=== PATIENT | female | born 1965 | race Caucasian/White ===

== ENCOUNTER 2024-04-13 15:28 | Outpatient (AMB) | payer OTHER, SELFPAY ==
--- NOTE | 2024-04-13 15:31 | MHC.PC.OV ---
Vital Signs 04/13/24 15:40 Height 5 ft 6 in Weight 199 lb BMI 32.1 BP 104/74 Blood Pressure Location Lt brachial Position Sitting Pulse 89 Pulse Source Pulse Oximeter Pulse Oximetry (%) 98 Oxygen Delivery Method Room Air Intake Visit Reasons: Est. Care Intake Note: New patient visit Dye Lab Technician Required: No Allergies No Known Allergies Allergy (Verified 04/13/24 15:31) Tobacco use date assessed: 04/13/24 Dental Screening Dental Screen Date: 04/13/24 Did you have a dental visit in the last 12 months?: Yes Did you have a dental problem in the last 6 months where you did not have access to dental care?: No Was dental information given to patient?: Patient has dentist HPI HPI Comments History of Present Illness Details 59 year old female with a past medical history of high cholesterol presenting to [facility]. Last PCP visit out of area 2 years ago Has right shoulder pain, bilateral hand pain, wrist pain. CMC pain. Family history of rheumatoid Insomnia: Has issues maintaining sleep. Lifelong. Has tried otc, trazodone ambien in the past. Wakes up after a few hours of sleep can't fall back asleep. Has taken ativan in the past with good effect. Overdue for tier over. Overdue mammo ROS see HPI PHYSICAL EXAM: GENERAL: Alert and oriented x 3. NAD EYES: EOMI. Anicteric. HENT: Moist mucous membranes. No scleral icterus. No cervical lymphadenopathy. LUNGS: Clear to auscultation bilaterally. CARDIOVASCULAR: Regular rate and rhythm. No murmur. No JVD. ABDOMEN: Soft, non-tender +bs EXTREMITIES: No edema. Non-tender. SKIN: No rashes or lesions. Warm. NEUROLOGIC: No focal neurological deficits. CN II-XII grossly intact PSYCHIATRIC: Cooperative. Appropriate mood and affect FOR[facility], [facility] Surgical History History of ankle surgery H/O section Family History Father Heart failure Social History Housing: House Alcohol intake: current Patient Tobacco Use Status: Former Tobacco user Cigarettes Per Day: 10 Years Smoked: 20 Packs per year/per ci.00 e-Cigarette/Vaping Use: Never Used Second Hand Smoke Exposure: No Use of substances other than those prescribed or required for medical reasons: No service: No Current occupational status: unemployed Cognitive needs: No Hearing needs: No Vision needs: Yes (reading glasses) Questionnaire PHQ-9 Over the last 2 weeks, how often have you been bothered by any of the following problems? 1. Little interest or pleasure in doing things: not at all 2. Feeling down, depressed, or hopeless: not at all 3. Trouble falling or staying asleep, or sleeping too much: several days 4. Feeling tired or having little energy: not at all 5. Poor appetite or overeating: not at all 6. Feeling bad about yourself - or that you are a failure or have let yourself or your family down: not at all 7. Trouble concentrating on things, such as reading the newspaper or watching television: not at all 8. Moving or speaking so slowly that other people could have noticed. Or the opposite - being so fidgety or restless that you have been moving around a lot more than usual: not at all 9. Thoughts that you would be better off or of hurting yourself in some way: not at all Total score: 1 Depression Screening Interpretation: Negative Depression Screening Done: Yes 67376 - PHQ-9 Billing: Yes Source: Developed by Drs. Wadlemar Chavarria, Merlyn Chen, Jack Garcia and colleagues, with an educational jose from [employer] Thrive Questionnaire Date Thrive assessed: 04/13/24 I am a: Patient What is your living situation today?: I have a steady place to live Within the past 12 months, did the food you bought not last and you didn't have the money to get more?: Never true Within the past 12 months, did you worry whether your food would run out before you got money to buy more?: Never true Do you have trouble paying for medicines?: No Do you have trouble getting transportation to medical appointments?: No Do you have trouble paying your heating and electricity bill?: No Do you have trouble taking care of your child, family member or friend?: No Do you have trouble with day-to-day activities such as bathing, preparing meals, shopping, managing finances, etc.?: No Are you currently unemployed and looking for a job?: Yes Are you interested in more education?: No Please select the resources that you would like help with: Job search/training Currently or been in a relationship where the following occur: No concerns reported THRIVE Score: 0 AUDIT C Alcohol Use Questionnaire (AUDIT-C) 1. How often do you have a drink containing alcohol?: Monthly or less 2. How many drinks containing alcohol do you have on a typical day when you are drinking?: 1 or 2 3. How often do you have six or more drinks on one occasion?: Never Total Score: 1 JENNYFER-7 AMB Questionnaire JENNYFER-7 Date JENNYFER - 7 assessed: 04/13/24 Feeling nervous, anxious, or on edge: 1 = Several days Not being able to stop or control worryin = Not at all Worrying too much about different things: 1 = Several days Trouble relaxin = Several days Being so restless that it is hard to sit still: 1 = Several days Becoming easily annoyed or irritable: 0 = Not at all Feeling afraid as if something awful might happen: 0 = Not at all Total JENNYFER-7 score (0-4 normal; 5-9 mild; 10-14 moderate; 15-21 severe): 4 Source: Developed by Drs. Waldemar Chavarria, Merlyn Chen, Jack Garcia and colleagues, with an educational jose from [employer] JENNYFER-7 Assessment Billing JENNYFER-7 Assessment Tool: JENNYFER-7 Assessment 72216 Physical exam (Primary Care) Vital Signs: Last Vital Signs Pulse 89 04/13/24 15:40 BP 104/74 04/13/24 15:40 Pulse Ox 98 04/13/24 15:40 Oxygen Delivery Method Room Air 04/13/24 15:40 BMI result Body Mass Index 32.1 Tobacco/Smoking Status: Tobacco use Status Tobacco use date assessed 04/13/24 04/13/24 15:43 Patient Tobacco Use Status Former Tobacco user 04/13/24 15:43 e-Cigarette/Vaping Use Never Used 04/13/24 15:43 PHQ-9: PHQ-9 Score PHQ-9: Total score 1 04/13/24 15:51 Depression Screening Interpretation: Negative Thrive Assessment: Date of Thrive Assessment Date Thrive assessed 04/13/24 04/13/24 15:43 Currently or been in a relationship where the following occur: No concerns reported Coding Level of Care Code New Pt Level 4 (89113) Diagnoses Encounter to establish care Z76.89 Bilateral wrist pain M25.531; M25.532 Additional Codes JENNYFER-7 Assessment Billing - JENNYFER-7 Assessment Tool: JENNYFER-7 Assessment 01254 ([id number]) PHQ-9 - 13145 - PHQ-9 Billing: Yes ([id number]) Assessment & Plan Assessment & Plan (1) Encounter to establish care: Code(s): Z76.89 - Persons encountering health services in other specified circumstances Category: Medical Plan: past medical, surgical, social and family history reviewed (2) Bilateral wrist pain: Code(s): M25.531 - Pain in right wrist; M25.532 - Pain in left wrist Category: Medical Plan: xrays ordered referral to rheumatology Trial meloxicam Orders: Orders Rheumatoid Factor 04/13/24 M25.511 - Pain in right shoulder, M25.531 - Pain in right wrist, M25.532 - Pain in left wrist, M79.641 - Pain in right hand, M79.642 - Pain in left hand XR hand LT min 3V 04/13/24 M25.511 - Pain in right shoulder, M25.531 - Pain in right wrist, M25.532 - Pain in left wrist, M79.641 - Pain in right hand, M79.642 - Pain in left hand XR hand RT min 3V 04/13/24 M25.511 - Pain in right shoulder, M25.531 - Pain in right wrist, M25.532 - Pain in left wrist, M79.641 - Pain in right hand, M79.642 - Pain in left hand MM screening mammo BI 04/13/24 Z12.31 - Encounter for screening mammogram for malignant neoplasm of breast Erythrocyte Sedimentation Rate 04/13/24 M25.511 - Pain in right shoulder, M25.531 - Pain in right wrist, M25.532 - Pain in left wrist, M79.641 - Pain in right hand, M79.642 - Pain in left hand Cyclic Citrullinated Peptide 04/13/24 M25.511 - Pain in right shoulder, M25.531 - Pain in right wrist, M25.532 - Pain in left wrist, M79.641 - Pain in right hand, M79.642 - Pain in left hand Lyme IgG/IgM w/reflex to WB 04/13/24 M25.511 - Pain in right shoulder, M25.531 - Pain in right wrist, M25.532 - Pain in left wrist, M79.641 - Pain in right hand, M79.642 - Pain in left hand Referrals Rheumatology Referral M25.511 - Pain in right shoulder, M25.531 - Pain in right wrist, M25.532 - Pain in left wrist, M79.641 - Pain in right hand, M79.642 - Pain in left hand PRIMARY CARE PHYSICIAN Referral Z01.419 - Encounter for gynecological examination (general) (routine) without abnormal findings Cologuard Test Z12.11 - Encounter for screening for malignant neoplasm of colon, Z12.12 - Encounter for screening for malignant neoplasm of rectum Dermatology Referral Z12.83 - Encounter for screening for malignant neoplasm of skin Medications: New temazepam 15 mg (2 x 7.5 mg) PO BEDTIME PRN 30 caps 2RF sleep meloxicam 15 mg PO DAILY 90 tabs 3RF
[2024-04-13 15:40] VITALS: BP 104/74; PULSE 89; O2SAT 98; BMI 32.1
== END 2024-04-13 16:08 | disposition home or self-care (01) ==
PROVIDERS: PCP Internal Medicine; Visit Provider Internal Medicine
DX: Z76.89 Persons encountering health services in other specified circumstances (principal); M25.531 Pain in right wrist; M25.532 Pain in left wrist

== ENCOUNTER → 2024-04-13 15:28 | Outpatient (BNVA) | payer OTHER, SELFPAY | PROVIDERS: PCP Internal Medicine; Visit Provider Internal Medicine | DX: M25.531 Pain in right wrist (principal); M25.532 Pain in left wrist; M25.511 Pain in right shoulder; M79.641 Pain in right hand; M79.642 Pain in left hand; Z76.89 Persons encountering health services in other specified circumstances | CPT/HCPCS: 96127; 99202 ==

== ENCOUNTER 2024-05-07 13:46 | Outpatient (REF) | payer OTHER, SELFPAY | END 2024-05-07 13:47 | disposition home or self-care (01) | LOC: HO.MAMMO 13:46 | PROVIDERS: PCP Internal Medicine; Visit Provider Internal Medicine | DX: Z12.31 Encounter for screening mammogram for malignant neoplasm of breast (principal) | CPT/HCPCS: 77063; 77067 ==

== ENCOUNTER 2024-05-07 14:39 | Outpatient (REF) | payer OTHER, SELFPAY ==
--- NOTE | ~2024-05-07 | XR_ITS ---
CLINICAL HISTORY: M79.641 - Pain in right hand Exam: AP, lateral, and oblique views of the left hand. Comparison: Right hand radiographs from same day. Findings: Moderate to severe degenerative change of the 1st carpometacarpal joint with [id number] degenerative change of the STT joint and 1st metacarpophalangeal joint. Minimal to mild scattered degenerative change along the interphalangeal joints. No acute fracture or erosion. No focal bony malalignment. Impression: Degenerative changes as above. This document has been electronically signed by: Ki Montoya MD on 05/08/2024 10:04:47
--- NOTE | ~2024-05-07 | XR_ITS ---
CLINICAL HISTORY: M79.641 - Pain in right hand Exam: AP, lateral, and oblique views of the right hand. Comparison: Left hand radiographs from same day. Findings: Moderate to severe degenerative change of the 1st carpometacarpal joint with moderate degenerative change of the STT joint and 1st metacarpophalangeal joint. No fracture or erosion. No dislocation. Minor scattered degenerative change along the remainder of the metacarpophalangeal joints and interphalangeal joints. Impression: Degenerative change of the thumb and radial aspect of the carpus as above. This document has been electronically signed by: Ki Montoya MD on 05/08/2024 10:05:52
== END 2024-05-07 14:40 | disposition home or self-care (01) ==
LOC: HO.XRAY 14:39
PROVIDERS: PCP Internal Medicine; Visit Provider Internal Medicine
DX: M79.641 Pain in right hand (principal); M79.642 Pain in left hand; M25.531 Pain in right wrist; M25.532 Pain in left wrist; M25.511 Pain in right shoulder
CPT/HCPCS: 73130

== ENCOUNTER → 2024-05-07 14:44 | Outpatient (BNV) | payer OTHER, SELFPAY | PROVIDERS: PCP Internal Medicine; Visit Provider Radiology Diagnostic Radiology | DX: M79.641 Pain in right hand (principal); M79.642 Pain in left hand | CPT/HCPCS: 73130 ==

== ENCOUNTER 2024-05-08 06:49 | Outpatient (REF) | payer OTHER, SELFPAY ==
[2024-05-08 08:28] LABS: Erythrocyte Sedimentation Rate 9 MM/HR (0-20)
[2024-05-08 08:37] LABS: Rheumatoid Factor < 13.0 IU/mL (<15.0)
[2024-05-09 10:19] LABS: Lyme Abs Screen <0.90 index
[2024-05-10 12:54] LABS: Cyclic Citrullinated Peptide <16 UNITS
== END 2024-05-08 06:50 | disposition home or self-care (01) ==
LOC: HO.LAB 06:49
PROVIDERS: PCP Internal Medicine; Visit Provider Internal Medicine
DX: M79.641 Pain in right hand (principal); M79.642 Pain in left hand; M25.531 Pain in right wrist; M25.532 Pain in left wrist; M25.511 Pain in right shoulder
CPT/HCPCS: 36415; 85652; 86200; 86431; 86617; 86618

== ENCOUNTER 2024-12-04 10:22 | Outpatient (AMB) | payer OTHER, SELFPAY ==
--- NOTE | 2024-12-04 10:40 | MHC.OFFVIS ---
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 Breast tenderness. No cramping. Assignment Agent: Assignment Agent Present (MYRON Herrera ) Accompanied by: Self / Same As Patient Allergies No Known Allergies Allergy (Verified 12/04/24 10:58) HPI Comments Details: Patient is here today for new patient consult with vaginal bleeding after a LMP over a year ago. She reports recent bilateral breast tenderness and thick yellow-greenish discharge. 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 She denies any urinary symptoms or pelvic pain. PFSH Medical History PMB (postmenopausal bleeding) Surgical History History of ankle surgery H/O section Family History Father Heart failure Social History Housing: House Alcohol intake: current Patient Tobacco Use Status: Former Tobacco user Cigarettes Per Day: 10 Years Smoked: 20 e-Cigarette/Vaping Use: Never Used Second Hand Smoke Exposure: No service: No Current occupational status: unemployed Cognitive needs: No Hearing needs: No Vision needs: Yes (reading glasses) Female Reproductive History Menstrual Age of Menarche: 14 control method: none Total pregnancies: 2 Full term: 2 History of abnormal pap smear: No Date of Mammogram: 05/07/24 Review of Systems Const All systems reviewed & are unremarkable except as noted in HPI and below Physical Exam Vital Signs: Last Vital Signs BP 104/70 12/04/24 11:01 BMI result Body Mass Index 31.3 Const General: cooperative, healthy appearing and no acute distress Orientation/consciousness: patient oriented x3 GI Inspection: Yes normal to inspection Palpation (GI): Soft to palpation and Other GI palpation findings present (Nontender) Rectal Exam - Female: visual inspection normal General: Yes bladder normal to palpation External Female Exam: normal appearance of the urethra Speculum Exam - Vagina: normal appearance of the vagina, normal palpation, normal vaginal discharge and vaginal bleeding Speculum Exam - Cervix: normal appearance of the cervix, normal palpation and Other cervical findings present (anterior position) Bimanual exam- vagina & uterus: normal bimanual exam, normal palpation, uterine size normal, bladder normal to palpation, normal palpation, uterine shape normal, non-tender and enlarged (RV) Bimanual Exam- Adnexa, other: normal adnexae OB/external & speculum: vaginal bleeding Neuro General: patient oriented x3 Assessment & Plan Assessment & Plan (1) PMB (postmenopausal bleeding): Code(s): N95.0 - Postmenopausal bleeding Category: Medical Plan Discuss workup for postmenopausal bleeding to include Pap smear, GC chlamydia, BV panel, pelvic ultrasound, an endometrial biopsy. Purpose of endometrial biopsy to rule out any abnormal findings including atypia, hyperplasia, precancer and cancer of the uterus lining. Preprocedure anticipatory guidance reviewed, advised to have something to eat and drink and take 3 Advil 1 hour before her biopsy appointment. The patient expressed understanding and agreement with the plan of care. All of her questions and concerns were addressed to the best of my ability. This note is constructed using voice recognition software. While every effort has been made to ensure accuracy, livestock auctioneer errors may have been included. Orders: Orders US pelvic and transvaginal Today N95.0 - Postmenopausal bleeding Pap Smear Today N95.0 - Postmenopausal bleeding, Z01.419 - Encounter for gynecological examination (general) (routine) without abnormal findings Bacterial Vaginosis Panel Today N95.0 - Postmenopausal bleeding CT NG by PCR Vag/Cerv Today N95.0 - Postmenopausal bleeding Coding Level of Care Code New Pt Level 3 (91522) Diagnoses PMB (postmenopausal bleeding) N95.0
[2024-12-04 11:01] VITALS: BP 104/70; BMI 31.3
--- OUTSIDE RECORDS SUMMARY | 2024-12-04 12:37 | XMS_ITS ---
Author Name [facility] Organization Unknown Encounters Encounter Type Encounter Reason Primary Diagnosis Location Date Ambulatory [facility], [facility]. ([facility]) 03/16/2024
== END 2024-12-04 15:13 | disposition home or self-care (01) ==
LOC: HO.HWS 10:22
PROVIDERS: PCP Internal Medicine; Visit Provider Advanced Practice Midwife
DX: N95.0 Postmenopausal bleeding (principal)
CPT/HCPCS: 99203

== ENCOUNTER 2024-12-04 10:22 | Outpatient (REF) | payer OTHER, SELFPAY ==
[2024-12-05 02:47] LABS: Bacterial Vaginosis PCR POSITIVE (Negative); Candida Group PCR NOT DETECTED (Not Detect); Candida glab krusei PCR NOT DETECTED (Not Detect); Trichomonas vaginalis PCR NOT DETECTED (Not Detect)
[2024-12-05 03:17] LABS: CT PCR NOT DETECTED (Not Detect.); NG PCR NOT DETECTED (Not Detect.)
== END 2024-12-04 10:23 | disposition home or self-care (01) ==
LOC: HO.LNP 10:22
PROVIDERS: PCP Internal Medicine; Visit Provider Advanced Practice Midwife
DX: Z01.419 Encounter for gynecological examination (general) (routine) without abnormal findings (principal); N95.0 Postmenopausal bleeding; Z20.2 Contact with and (suspected) exposure to infections with a predominantly sexual mode of transmission; Z11.51 Encounter for screening for human papillomavirus (HPV)
CPT/HCPCS: 81515; 87491; 87591; 87626; 88175; 99202

== ENCOUNTER 2024-12-24 10:45 | Outpatient (REF) | payer OTHER, SELFPAY ==
--- NOTE | ~2024-12-24 | US_ITS ---
CLINICAL HISTORY: postmenopausal bleeding US pelvis transabdominal and transvaginal with Doppler Comparison: None provided Findings: Transabdominal scanning performed for overall anatomy. Transvaginal scanning performed for additional detail. There are 4 masses in the uterus. The 1st mass measures 1.1 x 0.8 x 0.9 cm in the right uterus. The 2nd mass measures 0.8 x 0.7 x 0.8 cm in the right uterus. The 3rd mass measures 1.9 x 2.2 x 2.1 cm along the anterior uterus. The 4th mass is on the left and 1 x 0.9 x 1 cm. These likely represent fibroids. Uterus is 10.4 x 5.3 x 5.4 cm. the uterus is retroverted. Exam is limited due to uterus position. Endometrial thickness measures 0.3 cm. Right ovary is not seen. Left ovary is 2.1 x 0.8 x 1.1 cm Left adnexal Multilocular cystic lesion with slightly irregular inner wall and septations with no solid components. O-RADS category 4. Recommend gynecology referral and further evaluation with pelvic MRI. IMPRESSION: 1. Left adnexal Multilocular cystic lesion with slightly irregular inner wall and septations with no solid components. O-RADS category 4. Recommend gynecology referral and further evaluation with pelvic MRI. 2. There are 4 masses in the uterus. The 1st mass measures 1.1 x 0.8 x 0.9 cm in the right uterus. The 2nd mass measures 0.8 x 0.7 x 0.8 cm in the right uterus. The 3rd mass measures 1.9 x 2.2 x 2.1 cm along the anterior uterus. The 4th mass is on the left and 1 x 0.9 x 1 cm. These likely represent fibroids. 3. Endometrial thickness measures 0.3 cm. This document has been electronically signed by: Dami Sahu DO on 12/24/2024 12:34:40
== END 2024-12-24 10:46 | disposition home or self-care (01) ==
LOC: HO.US 10:45
PROVIDERS: PCP Internal Medicine; Visit Provider Advanced Practice Midwife
DX: N95.0 Postmenopausal bleeding (principal)
CPT/HCPCS: 76830; 76856

== ENCOUNTER → 2024-12-24 10:46 | Outpatient (BNV) | payer OTHER, SELFPAY | PROVIDERS: PCP Internal Medicine; Visit Provider Family Medicine | DX: N95.0 Postmenopausal bleeding (principal); D26.9 Other benign neoplasm of uterus, unspecified | CPT/HCPCS: 76830; 76856 ==

== ENCOUNTER 2025-01-01 13:44 | Outpatient (REF) | payer OTHER, SELFPAY | END 2025-01-01 13:45 | disposition home or self-care (01) | LOC: HO.LNP 13:44 | PROVIDERS: PCP Internal Medicine; Visit Provider Advanced Practice Midwife | DX: N83.292 Other ovarian cyst, left side (principal); N95.0 Postmenopausal bleeding | CPT/HCPCS: 58100; 88305 ==

== ENCOUNTER 2025-01-01 13:44 | Outpatient (AMB) | payer OTHER, SELFPAY ==
--- NOTE | 2025-01-01 14:12 | MHC.OFFVIS ---
Vital Signs 01/01/25 14:25 Height 5 ft 6 in BP 100/64 Intake Visit Reasons: emb/ultrasound follow up Front Desk Administrator: Front Desk Administrator Present (Sonia) Allergies No Known Allergies Allergy (Verified 01/01/25 14:12) HPI Comments Details: Patient is here today for an endometrial biopsy due to postmenopausal bleeding. Ultrasound reviewed and recommended an MRI due to complex ovarian cyst she is concerned as she has insurance changes w/ new insurance on 01/12/2025. [facility] Medical History (Updated 01/01/25 @ 14:29 by Yoly Rivas CNM) Fibroid Complex ovarian cyst PMB (postmenopausal bleeding) Surgical History History of ankle surgery H/O section Family History Father Heart failure Social History Housing: House Alcohol intake: current Patient Tobacco Use Status: Former Tobacco user Cigarettes Per Day: 10 Years Smoked: 20 e-Cigarette/Vaping Use: Never Used Second Hand Smoke Exposure: No service: No Current occupational status: unemployed Cognitive needs: No Hearing needs: No Vision needs: Yes (reading glasses) Female Reproductive History Menstrual Age of Menarche: 14 Review of Systems Const All systems reviewed & are unremarkable except as noted in HPI and below Physical Exam Vital Signs: Last Vital Signs BP 100/64 01/01/25 14:25 Const General: cooperative, healthy appearing and no acute distress Orientation/consciousness: patient oriented x3 GI Inspection: Yes normal to inspection Palpation (GI): Soft to palpation and Other GI palpation findings present (Nontender) Rectal Exam - Female: visual inspection normal General: Yes bladder normal to palpation External Female Exam: normal appearance of the urethra Speculum Exam - Vagina: normal appearance of the vagina, normal palpation and normal vaginal discharge Speculum Exam - Cervix: normal appearance of the cervix and normal palpation Bimanual exam- vagina & uterus: normal bimanual exam, normal palpation, uterine size normal, bladder normal to palpation, normal palpation, uterine shape normal and non-tender Bimanual Exam- Adnexa, other: normal adnexae Neuro General: patient oriented x3 Office Procedures Endometrial Biopsy Details: The patient is here today for an endometrial biopsy due to postmenopausal bleeding to rule out any pathology including atypical, hyperplasia or cancer cells of the uterus. She was counseled regarding anticipatory guidance for the procedure including the risks for pain, infection, bleeding, perforation, potential injury to the tissues may include the cervix, uterus, tubes, bladder and bowels. These injuries may include further treatment and evaluation including surgery, blood transfusions, antibiotics, hospitalizations and anesthesia. Permanent injury and scarring can occur. She was consented for the procedure, and the consent forms were signed. She is agreeable to have the procedure today. All questions were answered. Endometrial Biopsy Procedure: The patient was placed in the dorsal lithotomy position and a sterile speculum inserted. Using aseptic technique for the procedure. The cervix was cleansed with Betadine x 3 swabs. A single toothed tenaculum was placed on the cervix for stabilization, a small graduated dilator was utilized to loosen the stenotic cervix, and the uterus was sounded to 9 cm with a 4mm pipelle, and tissue sample obtained. Minimal bleeding was observed. The tissue sample was placed in formalin in a patient labeled container by staff assisting and sent to the pathology department for processing and interpretation. The patient tolerate the procedure well and was in good condition when leaving the department. Endometrial Biopsy Post Procedure Care: Nothing in the vagina including: tampons, douching or intimacy until all the bleeding has subsided. There may be some post procedure bleeding for several days, this bleeding is usually light and may turn to a light brown or pink color. Mild cramps may occurs. Nothing in the vaginal including: tampons, douching, or intimacy until all the bleeding has subsided. You may take an over the counter mild analgesic such as Tylenol or Advil (if no allergies) per the manufactures recommendation on dosing, frequency, and follow the directions completely. Call the office if any: fever (over 100.4), flu like symptoms, abdominal pain (worse than cramping), foul smelling, infected appearing vaginal discharge, or heavy bleeding. If indicated: Use condoms to prevent and STI's, and only after the bleeding has stopped completely. Return to the office in 2 weeks for results and plan of care. This note is constructed using voice recognition software. While every effort has been made to ensure accuracy, sandwich artist errors may have been included. [id number] Biopsy Results Reviewed Results Reviewed: [address] [address] Ultrasound Report Signed Patient: Erick Rodriguez MR#: [id number] : 1965 Acct:[id number] Age/Sex: 59 / F ADM Date: 12/24/24 Loc: HO.US Attending Dr: Yoly Rivas CNM Ordering Physician: Yoly Rivas CNM Date of Service: 12/24/24 Procedure(s): US pelvic and transvaginal Accession Number(s): [id number] cc: Yoly Rivas CNM; Chiara Li MD~ Reason for Exam: N95.0 - Postmenopausal bleeding CLINICAL HISTORY: postmenopausal bleeding US pelvis transabdominal and transvaginal with Doppler Comparison: None provided Findings: Transabdominal scanning performed for overall anatomy. Transvaginal scanning performed for additional detail. There are 4 masses in the uterus. The 1st mass measures 1.1 x 0.8 x 0.9 cm in the right uterus. The 2nd mass measures 0.8 x 0.7 x 0.8 cm in the right uterus. The 3rd mass measures 1.9 x 2.2 x 2.1 cm along the anterior uterus. The 4th mass is on the left and 1 x 0.9 x 1 cm. These likely represent fibroids. Uterus is 10.4 x 5.3 x 5.4 cm. the uterus is retroverted. Exam is limited due to uterus position. Endometrial thickness measures 0.3 cm. Right ovary is not seen. Left ovary is 2.1 x 0.8 x 1.1 cm Left adnexal Multilocular cystic lesion with slightly irregular inner wall and septations with no solid components. O-RADS category 4. Recommend gynecology referral and further evaluation with pelvic MRI. IMPRESSION: 1. Left adnexal Multilocular cystic lesion with slightly irregular inner wall and septations with no solid components. O-RADS category 4. Recommend gynecology referral and further evaluation with pelvic MRI. 2. There are 4 masses in the uterus. The 1st mass measures 1.1 x 0.8 x 0.9 cm in the right uterus. The 2nd mass measures 0.8 x 0.7 x 0.8 cm in the right uterus. The 3rd mass measures 1.9 x 2.2 x 2.1 cm along the anterior uterus. The 4th mass is on the left and 1 x 0.9 x 1 cm. These likely represent fibroids. 3. Endometrial thickness measures 0.3 cm. This document has been electronically signed by: Dami Sahu DO on 12/24/2024 12:34:40 Dictated By: Dami Sahu DO Signed By: <Electronically signed by Dami Sahu DO in OV> 12/24/24 1235 DD/ 1234 TD/TT: 12/24/24 1234 Design Intern: Assessment & Plan Assessment & Plan (1) PMB (postmenopausal bleeding): Code(s): N95.0 - Postmenopausal bleeding Category: Medical Plan: Endometrial biopsy completed await results for final plan of care see procedure notes. (2) Complex ovarian cyst: Code(s): N83.299 - Other ovarian cyst, unspecified side Category: Medical Plan Discussed: Ultrasound findings- IMPRESSION: 1. Left adnexal Multilocular cystic lesion with slightly irregular inner wall and septations with no solid components. O-RADS category 4. Recommend gynecology referral and further evaluation with pelvic MRI. 2. There are 4 masses in the uterus. The 1st mass measures 1.1 x 0.8 x 0.9 cm in the right uterus. The 2nd mass measures 0.8 x 0.7 x 0.8 cm in the right uterus. The 3rd mass measures 1.9 x 2.2 x 2.1 cm along the anterior uterus. The 4th mass is on the left and 1 x 0.9 x 1 cm. These likely represent fibroids. 3. Endometrial thickness measures 0.3 cm. Counseled regarding findings of: Complex ovarian cyst, which is often benign, and most resolve on their own overtime. Some develop into premalignant or malignant tumors. Limitations of testing for diagnostic purposes. Further monitoring and evaluation is recommended with US, possible CT, or MRI study. If persists, or is indicated (Ca-125, Carbohydrate Antigen 19-9, & Carcinoembryonic Antigen) labs will be ordered and referral to [facility] or general gynecology for MD care if indicated for possible surgical consult. MRI ordered await authorization for approval pending insurance. Follow up in person for test results. All of her questions and concerns were addressed to the best of my ability and shared decision making. She is agreeable to the plan of care. This note is constructed using voice recognition software. While every effort has been made to ensure accuracy, sandwich artist errors may have been included. Orders: Orders Carcinoembryonic Antigen Today N83.299 - Other ovarian cyst, unspecified side CA-125 Today N83.299 - Other ovarian cyst, unspecified side Carbohydrate Antigen 19-9 Today N83.299 - Other ovarian cyst, unspecified side MR pelvis wo/w con Today N83.299 - Other ovarian cyst, unspecified side Surgical Today N95.0 - Postmenopausal bleeding Coding Level of Care Code Procedure Only Diagnoses PMB (postmenopausal bleeding) N95.0 Complex ovarian cyst N83.299 CPT Codes Endometrial Biopsy - CPT: 27424-Plufgktmnrz Biopsy ([id number])
[2025-01-01 14:25] VITALS: BP 100/64
== END 2025-01-01 15:11 | disposition home or self-care (01) ==
LOC: HO.HWS 13:44
PROVIDERS: PCP Internal Medicine; Visit Provider Advanced Practice Midwife
DX: N95.0 Postmenopausal bleeding (principal); N83.299 Other ovarian cyst, unspecified side
CPT/HCPCS: 58100

== ENCOUNTER 2025-01-01 15:17 | Outpatient (REF) | payer OTHER, SELFPAY ==
[2025-01-01 17:08] LABS: Carcinoembryonic Antigen < 1.73 ng/mL
[2025-01-04 09:49] LABS: CA-125 26 U/mL (<35)
== END 2025-01-01 15:18 | disposition home or self-care (01) ==
LOC: HO.LAB 15:17
PROVIDERS: PCP Internal Medicine; Visit Provider Advanced Practice Midwife
DX: N83.299 Other ovarian cyst, unspecified side (principal)
CPT/HCPCS: 36415; 82378; 86301; 86304

== ENCOUNTER 2025-01-10 10:41 | Outpatient (AMB) | payer OTHER, SELFPAY ==
--- NOTE | 2025-01-10 10:53 | A.OFFVIS_ITS ---
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 History of BV treated last month. History of EMB for postmenopausal bleeding. 01/02/2025. History of complex ovarian cyst has not MRI to be scheduled due to insurance change patient has to rebook appointment. [facility] Medical History (Updated 01/10/25 @ 11:14 by Yoly Rivas CNM) Vaginal discharge Dysuria Fibroid Complex ovarian cyst PMB (postmenopausal bleeding) Surgical History History of ankle surgery H/O section Family History Father Heart failure Social History Housing: House Alcohol intake: current Patient Tobacco Use Status: Former Tobacco user Cigarettes Per Day: 10 Years Smoked: 20 e-Cigarette/Vaping Use: Never Used Second Hand Smoke Exposure: No service: No Current occupational status: unemployed Cognitive needs: No Hearing needs: No Vision needs: Yes (reading glasses) Female Reproductive History Menstrual Age of Menarche: 14 Review of Systems Const All systems reviewed & are unremarkable except as noted in HPI and below Physical Exam Const General: cooperative, healthy appearing and no acute distress Orientation/consciousness: patient oriented x3 GI Inspection: Yes normal to inspection Palpation (GI): Soft to palpation and Other GI palpation findings present (Nontender) Rectal Exam - Female: visual inspection normal General: Yes bladder normal to palpation External Female Exam: normal appearance of the urethra Speculum Exam - Vagina: normal appearance of the vagina, normal palpation and abnormal vaginal discharge frothy Speculum Exam - Cervix: normal appearance of the cervix and normal palpation Bimanual exam- vagina & uterus: normal bimanual exam, normal palpation, uterine size normal, bladder normal to palpation, normal palpation, uterine shape normal and non-tender Bimanual Exam- Adnexa, other: normal adnexae Neuro General: patient oriented x3 Results AMB Urinalysis, Automated UA Leukoctes 0 Samuel/uL Last Edit by Ely [facility] on 01/10/25 11:23 UA Nitrite Negative Last Edit by Ely [facility] on 01/10/25 11:23 UA Urobilinogen 0 mg/dL Last Edit by Ely [facility] on 01/10/25 11:2 3 UA Protein 0 mg/dL Last Edit by Ely [facility] on 01/10/25 11:23 UA pH 5.5 Last Edit by Ely [facility] on 01/10/25 11:23 UA Blood 0 David/uL Last Edit by Ely [facility] on 01/10/25 11:23 UA Specific [place] 1.010 Last Edit by Ely [facility] on 01/10/25 11:23 UA Ketone Negative Last Edit by Ely [facility] on 01/10/25 11:23 UA Bilirubin 0 mg/dL Last Edit by Ely [facility] on 01/10/25 11:23 UA Glucose 0 mg/dL Last Edit by Ely [facility] on 01/10/25 11:23 Results Reviewed Results Reviewed: Laboratory Last Values Urine pH (Auto) 5.5 01/10/25 11:12 Specific [place] (Auto) 1.010 01/10/25 11:12 Urine Protein (Auto) 0 mg/dL 01/10/25 11:12 Glucose (UA)(Auto) 0 mg/dL 01/10/25 11:12 Urine Ketones (Auto) Negative 01/10/25 11:12 Urine Blood (Auto) 0 David/uL 01/10/25 11:12 Urine Nitrite (Auto) Negative 01/10/25 11:12 Urine Bilirubin (Auto) 0 mg/dL 01/10/25 11:12 Urine Urobilinogen (Auto) 0 mg/dL 01/10/25 11:12 Leukocyte Esterase (Auto) 0 Samuel/uL 01/10/25 11:12 Surgical Pathology [id number] Name: Erick Rodriguez Age/Sex: 59/F Attending: Yoly Rivas CNM : 1965 Submitted by: Yoly Rivas CNM Copies to: Chiara Li MD MR #: [id number] Status: DEP REF Collected: 01/01/25 Location: [facility] Received: 01/02/25 Diagnosis Endometrium, biopsy: Superficial fragments and strips of benign endometrium and endocervical epithelium; no atypia seen. Clinical History PMB Microscopic Description Microscopic sections reviewed. Material Received Endometrial biopsy Gross Description Received in formalin is a 1.0 cc aggregate of daniel-brown spongy soft tissue, filtered through a mesh bag, totally submitted in cassette A1. (DTL) Copies To Yoly Rivas CNM [facility] [address] [place] [address] Drive [address] [place] [address] Chiara Li MD [address] [place] [id number] [email or web address] NOTE: Unless otherwise stated, all tissue is formalin-fixed and paraffin- embedded. Some or all of the immunohistochemical tests reported herein may have been developed and their performance characteristics determined by [facility]. They have not been cleared or approved by the U.S. Food and Drug Administration (FDA). However, the FDA has determined that such clearance or approval is not necessary. This laboratory is certified under the Clinical Laboratory Improvement Amendments of 1988 (CLIA) as qualified to perform high complexity clinical laboratory testing. Electronically Signed By: Rohan Romero MD 01/03/25 5969 Patient: Erick Rodriguez Age/Sex: 59/F MR#: [id number] Page 1 of 1 Assessment & Plan Assessment & Plan (1) Dysuria: Code(s): R30.0 - Dysuria Category: Medical Plan: Urine clean catch obtained-negative. (2) Vaginal discharge: Code(s): N89.8 - Other specified noninflammatory disorders of vagina Category: Medical Plan: BV swab obtained await results for final plan of care. Rx for BV treatment with Metrogel sent to pharmacy. The patient expressed understanding and agreement with the plan of care. All of her questions and concerns were addressed to the best of my ability. (3) Encounter to discuss test results: Code(s): Z71.2 - Person consulting for explanation of examination or test findings Plan: Discussed: Endometrial biopsy results- Diagnosis Endometrium, biopsy: Superficial fragments and strips of benign endometrium and endocervical epithelium; no atypia seen. If repeat episodes of bleeding with need to repeat it or perform a hysteroscopy exam for further evaluation. The patient expressed understanding and agreement with the plan of care. All of her questions and concerns were addressed to the best of my ability. Follow up pending MRI results. Total time I personally spent on visit and management today: ?30 minutes. Time spent included review of pertinent office notes in the electronic health record; review of laboratory and imaging results; review of personal family medical history; performing physical exam; discussing diagnosis and plan of care with the patient; documenting the encounter in the EMR. Plan This note is constructed using voice recognition software. While every effort has been made to ensure accuracy, instrument and controls technician errors may have been included. Orders: Orders AMB Urinalysis Automated Today R30.0 - Dysuria Bacterial Vaginosis Panel Today N89.8 - Other specified noninflammatory disorders of vagina Medications: New metronidazole 0.75%(37.5mg/5gram) 1 appful vaginal BID 70 grams 1RF 5 days Coding Level of Care Code Est Pt Level 4 (39966) Diagnoses Dysuria R30.0 Vaginal discharge N89.8 Encounter to discuss test results Z71.2
== END 2025-01-10 11:25 | disposition home or self-care (01) ==
LOC: HO.HWS 10:42
PROVIDERS: PCP Internal Medicine; Visit Provider Advanced Practice Midwife
DX: R30.0 Dysuria (principal); N89.8 Other specified noninflammatory disorders of vagina; Z71.2 Person consulting for explanation of examination or test findings
CPT/HCPCS: 99214

== ENCOUNTER 2025-01-10 10:41 | Outpatient (REF) | payer OTHER, SELFPAY ==
[2025-01-11 01:00] LABS: Bacterial Vaginosis PCR POSITIVE (Negative); Candida Group PCR NOT DETECTED (Not Detect); Candida glab krusei PCR NOT DETECTED (Not Detect); Trichomonas vaginalis PCR NOT DETECTED (Not Detect)
== END 2025-01-10 10:42 | disposition home or self-care (01) ==
LOC: HO.LAB 10:41
PROVIDERS: PCP Internal Medicine; Visit Provider Advanced Practice Midwife
DX: R30.0 Dysuria (principal); N89.8 Other specified noninflammatory disorders of vagina; Z71.2 Person consulting for explanation of examination or test findings; Z20.2 Contact with and (suspected) exposure to infections with a predominantly sexual mode of transmission
CPT/HCPCS: 81003; 81515; 99212